=== PATIENT | female | born 1945 | race Caucasian/White ===

== ENCOUNTER 2019-04-06 06:13 | Day surgery (SDC) | payer OTHER ==
[~2019-04-06] VITALS: Ht 172.7 cm; Wt 86.2 kg
--- NOTE | ~2019-04-06 | O ---
[facility] [place] [address] OPERATIVE REPORT Name: CARIE CORLEY Room #: DEP [facility].#: [id number] Admission: 04/06/19 ������������������ Attend Phys: Lance Gomez MD Discharge: 04/06/19 ������������������ Date of : 49 Report #: [id number] THIS REPORT FOR: //name// CC: Navin Gomez DATE OF SERVICE: 04/06/2019 PREOPERATIVE DIAGNOSIS: Bilateral severe hallux varus with second through fourth claw toes. POSTOPERATIVE DIAGNOSIS: Bilateral severe hallux varus with second through fourth claw toes. PROCEDURE: Bilateral first metatarsophalangeal joint arthrodesis with second through fourth toe metatarsal head excisions and second and third toe proximal interphalangeal joint arthrodesis on the left and second, third and fourth toe proximal interphalangeal joint arthrodesis on the right. SURGEON: Lance Gomez MD OFFICE NURSE PRACTITIONER: Kelly Hodge. ANESTHESIA: General. ESTIMATED BLOOD LOSS: Minimal. DRAINS: No drains. TOURNIQUET TIME: On the left was 75 minutes, on the right was 75 minutes. DESCRIPTION OF PROCEDURE: The patient brought to the operating room where she was placed under general anesthesia. Once under adequate general anesthesia, bilateral lower extremities were prepped and draped in a sterile manner. We attended to the left lower extremity first. The left lower extremity was then elevated, exsanguinated, tourniquet placed to 300 mmHg. A dorsal incision over the first metatarsophalangeal joint was made. This was dissected down through the soft tissue to the first metatarsophalangeal joint. Exposure was made of the first MTP joint through the dorsal capsule. A sagittal saw was then used to resect and flat-cut bone to allow for the arthrodesis. Once resected, demineralized bone matrix allograft was placed into the joint and fixation was then achieved with a dorsal plate and lag screw construct from the [employer] system. Excellent alignment was achieved. Dorsal incisions were then made at the 2-3 and 3-4 interspaces with blunt dissection down to the metatarsal necks of the second, third and fourth metatarsals. The metatarsal heads were then resected through transverse osteotomies through the metatarsal necks of each of [address] [address] OPERATIVE REPORT Name: CARIE CORLEY Room #: DEP [facility].#: [id number] Admission: 04/06/19 ������������������ Attend Phys: Lance Gomez MD Discharge: 04/06/19 ������������������ Date of : 49 Report #: [id number] the metatarsals. These were then removed utilizing a rongeur. Dorsal incisions were made at the proximal interphalangeal joint of the second and third toes where the joints were debrided with a rongeur to good bleeding subchondral bone. Subsequent fixation across the toes 2, 3 and 4 were then achieved with 0.062 K-wires placed from the distal toe into the metatarsals proximally. Excellent fixation and alignment was achieved. The pins were then cut short and pin balls were placed. Fluoroscopy was used to verify the position to be satisfactory and alignment to be satisfactory. These wounds were then irrigated copiously and closed with 3-0 Vicryl in subcutaneous tissues and 3-0 nylon for the skin. We then proceeded to the right lower extremity. Tourniquet was let down on the left at 75 minutes. Toes were pink and warm with good capillary refill. We then proceeded to the right lower extremity and a dorsal incision over the first metatarsophalangeal joint was made there as well. Exposure was made of the first metatarsophalangeal joint sharply with a [place] blade. Exposure of the joint then allowed for flat-cuts once again across the joint to allow for subsequent fixation. Demineralized bone matrix allograft was placed into the joint and fixation was then achieved across the joint with the same lag screw and dorsal plate construct from the [employer] system. Excellent fixation and alignment was achieved as verified under fluoroscopy. Similar incisions as to the left side at the 2-3 and 3-4 webspace were then made approximately 2 cm each. Once complete, the metatarsals were bluntly dissected free and subsequently the necks were transected transversely with a sagittal saw and subsequently the heads of the second, third and fourth metatarsals were removed with the rongeur. Dorsal incisions over the second, third and fourth proximal interphalangeal joints were made, with the proximal phalangeal heads resected with a sagittal saw and the joint debrided with a rongeur to good bleeding subchondral bone. Fixation across the toes and into the metatarsals was then achieved with 0.062 K wires placed under fluoroscopic guidance. These were placed from the distal toe into the proximal metatarsals. Excellent fixation and alignment was achieved as verified under fluoroscopy. The wounds were then irrigated copiously and closed with 3-0 Vicryl in the subcutaneous tissues and 3-0 nylon for the skin. The wounds were dressed with Xeroform, 4 x 4s, and sterile soft compressive dressing was placed. Tourniquet was let down at approximately 75 minutes. Toes were pink and warm with good capillary refill. There were no complications from the procedure. The patient tolerated the procedure well and went to the recovery room without incident. ��������������������������������������������� ���������������������������������������� By: ��������������������������������������������� 1553 1635 Lance Gomez MD /pablo
[~2019-04-06 06:13] MED LIST: APAP650 PO; CALCIUM + VITA1 EACH PO; CENTRUM SILVER1 EAC4 PO; CHLORTHALIDONE25 MG PO; CLARITIN10 MG PO; CLONAZEPAM 1 MG1 M1 PO; CO Q-10100 MG PO; CREON DR 36,001 EACH PO; FAMOTIDINE 20 M20 MG PO; FLUTICASONE PRO16 GM NASAL; LISINOPRIL5 MG PO; MUCINEX600 MG PO; NEURONTIN 300300 M1 PO; PROVENTIL HFA6.7 G1 INH; QVAR REDIHALE10.6 G1 INH; REQUIP 1 MG TABL1 M1 PO; ROPINIROLE HCL0.5 MG PO; SEREVENT DISKU50 MCG INH; SINGULAIR 10 MG10 M1 PO; ZYRTEC10 M5 PO
[2019-04-06 07:31] LABS: CALCIUM 9.9 mg/dL (8.5-10.1); CREATININE 0.8 mg/dL (0.6-1.0); POTASSIUM 3.7 mmol/L (3.5-5.1)
[2019-04-06 07:48] VITALS: BP 120/69
[2019-04-06] MEDS ORDERED: PERCOCET 7.5-31 EACH PO (11:16)
[2019-04-06 11:47] VITALS: BP 120/69
--- NOTE | 2019-04-06 16:48 | EKG ---
[place] [address] [employer] [facility] [facility] [place] [address] ELECTROCARDIOGRAM REPORT Name: CARIE CORLEY Room #: 150-7 [facility]#: [id number] ������������������ Admission: 04/06/19 ������������������ Attend Phys: Lance Gomez MD Discharge: ������������������ Date of : 49 Report #: [id number] ����������������������������������������������������������������� [id number] THIS REPORT FOR: //name// [facility] Test Date: 2019-04-06 Test Time: 07:50:11 Pat Name: CARIE CORLEY Department: Room: 150 7 Gender: F Mobile Heavy Equipment Mechanic: CHLOÉ : 1945 Requested By: Lance Gomez Order Number: [id number] MD: John Waterman Measurements Intervals [place] Rate: 60 P: 24 DC: 175 QRS: -16 QRSD: 104 T: -6 QT: 435 QTc: 435 Interpretive Statements Sinus rhythm Abnormal R-wave progression, early transition Left ventricular hypertrophy Borderline T abnormalities, inferior leads No previous ECG available for comparison Electronically Signed On 04-06-2019 16:48:10 CDT by John Waterman [email or web address] ��������������������������������������������� <ELECTRONICALLY SIGNED> ���������������������������������������� By: John Waterman MD, [facility] ��������������������������������������������� 04/06/19 1648 0750 0750 John Waterman MD, [facility] /EPI
== END 2019-04-06 13:00 | disposition home or self-care (01) ==
LOC: TBA 06:13 → OR 06:13 → TBA 06:14 → OR 09:14
PROVIDERS: Orthopaedic Surgery Foot and Ankle Surgery
DX: M20.31 Hallux varus (acquired), right foot (principal); M20.32 Hallux varus (acquired), left foot; M20.5X2 Other deformities of toe(s) (acquired), left foot; M20.5X1 Other deformities of toe(s) (acquired), right foot; I10 Essential (primary) hypertension; J45.909 Unspecified asthma, uncomplicated; K21.9 Gastro-esophageal reflux disease without esophagitis; F32.9 Major depressive disorder, single episode, unspecified; F41.9 Anxiety disorder, unspecified; Z96.653 Presence of artificial knee joint, bilateral; Z98.41 Cataract extraction status, right eye; Z98.42 Cataract extraction status, left eye; Z98.890 Other specified postprocedural states; Z98.51 Tubal ligation status; Z79.899 Other long term (current) drug therapy; Z88.0 Allergy status to penicillin; Z88.8 Allergy status to other drugs, medicaments and biological substances; Z79.891 Long term (current) use of opiate analgesic
CPT/HCPCS: 50010; 50101; 50386; 50951; 51275; 51291; 51412; 56524; 56526; 56527; 57180; 57262; 57263; 57264; 57265; 57266; 57267; 62110; 62900; 70005

== ENCOUNTER 2019-05-01 09:41 | Emergency (ER) | payer OTHER ==
[~2019-05-01] VITALS: Ht 175.3 cm; Wt 86.2 kg
[~2019-05-01 09:41] MED LIST changes: +PERCOCET 7.5-31 EACH PO
[2019-05-01 11:42] LABS: CALCIUM 10.4 mg/dL (8.5-10.1); CREATININE 0.9 mg/dL (0.6-1.0); POTASSIUM 3.6 mmol/L (3.5-5.1)
[2019-05-01 11:54] LABS: EOSINOPHILS 5.1 % (0.0-3.0); HEMATOCRIT 41.8 % (37.0-47.0); HEMOGLOBIN 13.9 gm/dL (12.0-15.0); LYMPHOCYTES 22.3 % (24.0-44.0); MCH 29.5 pg (26.0-34.0); MCHC 33.1 g/dL (28.0-37.0); MCV 89.1 fL (80.0-100.0); MONOCYTES 10.8 % (1.0-8.0); PLATELET COUNT 291 thou/uL (150-400); POLYS 60.8 % (36.0-66.0); RBC 4.69 mil/uL (4.20-5.00); RDW 14.5 % (10.5-14.5); WBC 8.2 thou/uL (4.0-11.0)
[2019-05-01 12:54] VITALS: BP 139/79
== END 2019-05-01 12:54 | disposition home or self-care (01) ==
LOC: ER 09:41
PROVIDERS: Emergency Medicine
DX: M96.830 Postprocedural hemorrhage of a musculoskeletal structure following a musculoskeletal system procedure (principal); G89.18 Other acute postprocedural pain; I10 Essential (primary) hypertension; F41.9 Anxiety disorder, unspecified; J45.909 Unspecified asthma, uncomplicated; K21.9 Gastro-esophageal reflux disease without esophagitis; G25.81 Restless legs syndrome; Z96.653 Presence of artificial knee joint, bilateral; Z90.49 Acquired absence of other specified parts of digestive tract; Z88.0 Allergy status to penicillin; Z98.890 Other specified postprocedural states; Z88.1 Allergy status to other antibiotic agents; Z88.6 Allergy status to analgesic agent

== ENCOUNTER → 2019-06-09 | Outpatient (CLI) | payer OTHER | LOC: HYPER 06:43 | DX: T81.89XD Other complications of procedures, not elsewhere classified, subsequent encounter (principal); L97.811 Non-pressure chronic ulcer of other part of right lower leg limited to breakdown of skin; L97.821 Non-pressure chronic ulcer of other part of left lower leg limited to breakdown of skin; I10 Essential (primary) hypertension; L97.512 Non-pressure chronic ulcer of other part of right foot with fat layer exposed; L97.522 Non-pressure chronic ulcer of other part of left foot with fat layer exposed; M21.821 Other specified acquired deformities of right upper arm; M20.11 Hallux valgus (acquired), right foot; M20.5X2 Other deformities of toe(s) (acquired), left foot; M20.5X1 Other deformities of toe(s) (acquired), right foot; R60.0 Localized edema; K21.9 Gastro-esophageal reflux disease without esophagitis; J45.909 Unspecified asthma, uncomplicated; F41.9 Anxiety disorder, unspecified; F32.9 Major depressive disorder, single episode, unspecified; Z96.653 Presence of artificial knee joint, bilateral; Y83.8 Other surgical procedures as the cause of abnormal reaction of the patient, or of later complication, without mention of misadventure at the time of the procedure ==

== ENCOUNTER → 2019-06-30 | Outpatient (CLI) | payer OTHER | LOC: HYPER 07:36 | DX: T81.89XD Other complications of procedures, not elsewhere classified, subsequent encounter (principal); L97.512 Non-pressure chronic ulcer of other part of right foot with fat layer exposed; L97.522 Non-pressure chronic ulcer of other part of left foot with fat layer exposed; L84 Corns and callosities; I10 Essential (primary) hypertension; M21.5 Acquired clawhand, clubhand, clawfoot and clubfoot; M20.11 Hallux valgus (acquired), right foot; M20.5X2 Other deformities of toe(s) (acquired), left foot; M20.5X1 Other deformities of toe(s) (acquired), right foot; R60.0 Localized edema; K21.9 Gastro-esophageal reflux disease without esophagitis; J45.909 Unspecified asthma, uncomplicated; F32.9 Major depressive disorder, single episode, unspecified; Z96.653 Presence of artificial knee joint, bilateral; Y83.8 Other surgical procedures as the cause of abnormal reaction of the patient, or of later complication, without mention of misadventure at the time of the procedure ==

== ENCOUNTER → 2019-07-18 | Outpatient (CLI) | payer OTHER | LOC: HYPER 07:49 | DX: T81.89XD Other complications of procedures, not elsewhere classified, subsequent encounter (principal); L97.512 Non-pressure chronic ulcer of other part of right foot with fat layer exposed; L97.522 Non-pressure chronic ulcer of other part of left foot with fat layer exposed; I10 Essential (primary) hypertension; K21.9 Gastro-esophageal reflux disease without esophagitis; M21.5 Acquired clawhand, clubhand, clawfoot and clubfoot; M20.11 Hallux valgus (acquired), right foot; M20.5X2 Other deformities of toe(s) (acquired), left foot; M20.5X1 Other deformities of toe(s) (acquired), right foot; R60.0 Localized edema; J45.909 Unspecified asthma, uncomplicated; F41.9 Anxiety disorder, unspecified; F32.9 Major depressive disorder, single episode, unspecified; Z96.653 Presence of artificial knee joint, bilateral; Y83.8 Other surgical procedures as the cause of abnormal reaction of the patient, or of later complication, without mention of misadventure at the time of the procedure ==

== ENCOUNTER → 2019-08-08 | Outpatient (CLI) | payer OTHER | LOC: HYPER 08:19 | DX: T81.89XD Other complications of procedures, not elsewhere classified, subsequent encounter (principal); L97.512 Non-pressure chronic ulcer of other part of right foot with fat layer exposed; L97.522 Non-pressure chronic ulcer of other part of left foot with fat layer exposed; I10 Essential (primary) hypertension; M21.5 Acquired clawhand, clubhand, clawfoot and clubfoot; M20.11 Hallux valgus (acquired), right foot; M20.5X2 Other deformities of toe(s) (acquired), left foot; M20.5X1 Other deformities of toe(s) (acquired), right foot; K21.9 Gastro-esophageal reflux disease without esophagitis; J45.909 Unspecified asthma, uncomplicated; R60.0 Localized edema; F41.9 Anxiety disorder, unspecified; F32.9 Major depressive disorder, single episode, unspecified; Z96.653 Presence of artificial knee joint, bilateral; Y83.8 Other surgical procedures as the cause of abnormal reaction of the patient, or of later complication, without mention of misadventure at the time of the procedure ==

== ENCOUNTER → 2020-07-26 | Outpatient (CLI) | payer OTHER ==
[~2020-07-26] MED LIST changes: +GABAPENTIN600 M1 PO
== END ==
LOC: LAB 13:49
PROVIDERS: ATTEND Orthopaedic Surgery Foot and Ankle Surgery
DX: Z01.812 Encounter for preprocedural laboratory examination (principal); Z20.828 Contact with and (suspected) exposure to other viral communicable diseases

== ENCOUNTER 2020-08-01 06:11 | Day surgery (SDC) | payer OTHER ==
[~2020-08-01] VITALS: Ht 172.7 cm; Wt 90.7 kg
[2020-08-01 07:18] VITALS: BP 133/74
[2020-08-01 08:07] LABS: CALCIUM 9.1 mg/dL (8.5-10.1); POTASSIUM 3.4 mmol/L (3.5-5.1)
[2020-08-01] MEDS ORDERED: PERCOCET 7.5-31 EAC1 PO (08:45)
[2020-08-01 09:11] VITALS: BP 133/74
--- NOTE | 2020-08-02 09:47 | O ---
[facility] [address] [place] [address] OPERATIVE REPORT Name: CARIE CORLEY Room #: DEP [facility].#: [id number] Admission: 08/01/20 Attend Phys: Lance Gomez MD Discharge: 08/01/20 Date of : 49 Report #: [id number] THIS REPORT FOR: cc: Navin Mcqueen MD,Navin Gomez,Lance Yang MD ~ CC: Navin Gomez DATE OF SERVICE: 08/01/2020 PREOPERATIVE DIAGNOSES: 1. 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 2. 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 3. Right fifth toe curly toe. POSTOPERATIVE DIAGNOSES: 1. 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 2. 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 3. Right fifth toe curly toe. PROCEDURE: 1. Right great toe first MTP joint revision arthrodesis. 2. Right second and third toe revision PIP fusion. 3. Right fifth toe flexor tenotomy. SURGEON: Dr. Lance Gomez. DATABASE SOFTWARE TECHNICIAN: Kelly Hodge. ANESTHESIA: General. ESTIMATED BLOOD LOSS: Minimal. DRAINS: No drains. TOURNIQUET TIME: 90 minutes. DESCRIPTION OF PROCEDURE: The patient brought to the operating room where she was placed under general anesthesia. Once under adequate general anesthesia, her right lower extremity was prepped and draped in sterile manner. The extremity was elevated, exsanguinated, tourniquet placed 300 mmHg. A dorsal incision in the patient's previous scar was made. This was dissected down through the soft tissue to the previous dorsal plate and the hardware screws that were in the first MTP joint. This was then exposed with an osteotome and a paitño elevator and the screws were then removed from the plate and the plate was [address] [address] OPERATIVE REPORT Name: JORYCARIE J Room #: DEP [facility]..#: [id number] Admission: 08/01/20 Attend Phys: Lance Gomez MD Discharge: 08/01/20 Date of : 49 Report #: [id number] then subsequently removed. The joint itself was then debrided of any intervening soft tissue and brought to good bleeding subchondral bone. The bone was then fenestrated and subsequently fixed into place with a provisional 4-0 cannulated screw and then a dorsal plate from the [employer] locking foot tray. Excellent fixation and alignment was achieved once this plate was placed and the screws were in place. Excellent fixation and alignment was achieved. Dorsal incision, the patient's previous scars were made at the second and third toes exposing the malunited PIP fusions. Medial wedge of bone were removed with a sagittal saw after exposing the joint and subsequent fixation across each of these was achieved with a 0.062 K-wire. A flexor tenotomy of the fifth toe was then achieved with a Pettis blade through the plantar skin at the distal skin crease of the foot. Excellent reduction was able to then be achieved. A 0.062 K-wire was used to hold this in place as well. The pins were cut short and the [place] pin balls were placed. Excellent fixation and alignment was achieved as verified under fluoroscopy. The wounds were then irrigated copiously and closed with 3-0 Vicryl in subcutaneous tissues and 3-0 nylon for the skin. The wound was dressed with Xeroform, 4 x 4s, and sterile soft compressive dressing was placed. Tourniquet was let down at 90 minutes. Toes were pink and warm with good capillary refill. There were no complications from the procedure. The patient tolerated the procedure well and went to recovery room without incident. <ELECTRONICALLY SIGNED> By: Lance Gomez MD 08/02/20 0947 [id number] Lance Gomez MD /nt
== END 2020-08-01 10:00 | disposition home or self-care (01) ==
LOC: OR 06:11 → TBA 06:11 → OR 10:00
PROVIDERS: ATTEND Orthopaedic Surgery Foot and Ankle Surgery
DX: M96.0 Pseudarthrosis after fusion or arthrodesis (principal); M20.5X1 Other deformities of toe(s) (acquired), right foot; I10 Essential (primary) hypertension; K21.9 Gastro-esophageal reflux disease without esophagitis; J45.909 Unspecified asthma, uncomplicated; K86.1 Other chronic pancreatitis; F41.9 Anxiety disorder, unspecified; F32.9 Major depressive disorder, single episode, unspecified; Z98.890 Other specified postprocedural states; Z79.899 Other long term (current) drug therapy; Z90.49 Acquired absence of other specified parts of digestive tract; Z96.653 Presence of artificial knee joint, bilateral; Z98.41 Cataract extraction status, right eye; Z98.42 Cataract extraction status, left eye
CPT/HCPCS: 50010; 50101; 50386; 50951; 51412; 56524; 56527; 57091; 57180; 58118; 58190; 58374; 58375; 62110; 62900; 70005